=== PATIENT | male | born 1995 | race African-American/Black ===

== ENCOUNTER 2021-12-27 02:07 | Emergency (ER) | payer SELFPAY ==
[~2021-12-27] VITALS: Ht 198.1 cm; Wt 172.4 kg
[2021-12-27] MEDS ORDERED: ANUSOL-HC25 MG RC (02:13)
== END 2021-12-27 02:33 | disposition home or self-care (01) ==
LOC: ER 02:19
DX: K64.4 Residual hemorrhoidal skin tags (principal); F17.210 Nicotine dependence, cigarettes, uncomplicated
CPT/HCPCS: 99282